=== PATIENT | female | born 1955 | race African-American/Black ===

== ENCOUNTER 2019-02-15 10:35 | Emergency (ER) | payer OTHER ==
[2019-02-15 11:23] LABS: ADD MAN DIFF? NO
[2019-02-15] MEDS: LORAZEPAM 1 MG TAB PO (11:26)
[2019-02-15 11:36] LABS: BASOPHILS % 0.3 % (0.0-2.0); EOSINOPHILS % 0.3 % (0.0-7.0); HEMATOCRIT 39.4 % (37.0-47.0); HEMOGLOBIN 13.3 g/dl (12.0-16.0); LYMPHOCYTES # 0.8 10^3/ul (0.8-2.9); LYMPHOCYTES % 11.5 % (15.0-51.0); MEAN CORPUSCULAR HEMOGLOBIN 31.7 pg (29.0-33.0); MEAN CORPUSCULAR HGB CONC 33.8 g/dl (32.0-37.0); MEAN CORPUSCULAR VOLUME 93.8 fl (82.0-101.0); MEAN PLATELET VOLUME 9.3 fl (7.4-10.4); MONOCYTE # 0.6 10^3/ul (0.3-0.9); MONOCYTES % 9.1 % (0.0-11.0); NEUTROPHIL # 5.4 10^3/ul (1.6-7.5); NEUTROPHILS % 78.5 % (39.0-77.0); PLATELET COUNT 206 10^3/UL (140-415)
[2019-02-15 11:36] LABS: WHITE BLOOD COUNT 6.8 10^3/ul (4.8-10.8)
[2019-02-15 11:46] LABS: LACTIC ACID 1.4 mmol/L (0.5-2.0)
[2019-02-15 11:50] LABS: ALANINE AMINOTRANSFERASE 23 IU/L (13-69); ALBUMIN 4.2 g/dl (3.3-4.9); ALBUMIN/GLOBULIN RATIO 1.68; ALKALINE PHOSPHATASE 130 IU/L (42-121); ANION GAP 10 (5-13); ASPARTATE AMINO TRANSFERASE 19 IU/L (15-46); BILIRUBIN,INDIRECT 0.5 mg/dl (0-1.1); BILIRUBIN,TOTAL 0.5 mg/dl (0.2-1.3); BLOOD UREA NITROGEN 10 mg/dl (7-20); CALCIUM 11.1 mg/dl (8.4-10.2); CARBON DIOXIDE 24 mmol/L (21-31); CHLORIDE 102 mmol/L (97-110); CREATININE 0.54 mg/dl (0.44-1.00); Estimated GFR > 60 mL/min (>60); GLUCOSE 106 mg/dl (70-220); LIPASE 335 U/L (23-300); POTASSIUM 3.8 mmol/L (3.5-5.1); SODIUM 136 mmol/L (135-144); TOTAL PROTEIN 6.7 g/dl (6.1-8.1)
[2019-02-15 11:59] LABS: TROPONIN-I < 0.012 ng/ml (0.000-0.120)
[2019-02-15 12:17] LABS: URINE BLOOD (Dip) POC Trace-lysed (NEGATIVE); URINE GLUCOSE (Dip) POC Negative (NEGATIVE); URINE KETONES (Dip) POC Negative (NEGATIVE); URINE LEUKOCYTE EST (Dip) POC Negative (NEGATIVE); URINE NITRITE (Dip) POC Negative (NEGATIVE); URINE TOTAL PROTEIN POC Negative (NEGATIVE)
[2019-02-15 12:17] LABS: URINE PH (Dip) POC 7.5 (5.0-8.5)
[2019-02-15 14:35] LABS: ADD UMIC YES; UR ASCORBIC ACID NEGATIVE (NEGATIVE); UR BILIRUBIN (Dip) NEGATIVE (NEGATIVE); UR BLOOD (Dip) 1+ mg/dL (NEGATIVE); UR CLARITY CLEAR (CLEAR); UR COLOR STRAW (YELLOW); UR GLUCOSE (Dip) NEGATIVE (NEGATIVE); UR KETONES (Dip) NEGATIVE (NEGATIVE); UR LEUKOCYTE ESTERASE (Dip) NEGATIVE Leu/ul (NEGATIVE); UR NITRITE (Dip) NEGATIVE (NEGATIVE); UR RBC 2 /HPF (0-5); UR SPECIFIC GRAVITY (Dip) 1.006 (1.003-1.030); UR TOTAL PROTEIN (Dip) NEGATIVE (NEGATIVE); UR UROBILINOGEN (Dip) NEGATIVE (NEGATIVE); UR WBC 1 /HPF (0-5)
== END 2019-02-15 12:45 | disposition home or self-care (01) ==
LOC: E/R 10:35
DX: B34.9 Viral infection, unspecified (principal); I10 Essential (primary) hypertension; J44.9 Chronic obstructive pulmonary disease, unspecified; R40.2142 Coma scale, eyes open, spontaneous, at arrival to emergency department; R40.2362 Coma scale, best motor response, obeys commands, at arrival to emergency department; R40.2252 Coma scale, best verbal response, oriented, at arrival to emergency department; Z86.73 Personal history of transient ischemic attack (TIA), and cerebral infarction without residual deficits; Z87.891 Personal history of nicotine dependence
CPT/HCPCS: 36415; 71045; 80053; 81001; 81003; 83605; 83690; 84484; 85025; 93005; 99285-25

== ENCOUNTER 2019-02-24 06:48 | Emergency (ER) | payer OTHER ==
[2019-02-24] MEDS: ONDANSETRON 4 MG INJ IV (07:30)
[2019-02-24] MEDS: BELLADONNA/PHENOBARBITAL TAB PO (07:30)
[2019-02-24] MEDS: LIDOCAINE/MYLANTA 40 ML BTL PO (07:30)
[2019-02-24] MEDS: SOD CHLORIDE 0.9% 1,000 ML IV (07:31)
[2019-02-24] MEDS: morphine 4 MG/ML VIAL IV (07:31)
[2019-02-24 07:44] LABS: ADD MAN DIFF? NO
[2019-02-24 07:49] LABS: BASOPHILS % 0.3 % (0.0-2.0); EOSINOPHILS % 0.1 % (0.0-7.0); HEMOGLOBIN 14.1 g/dl (12.0-16.0); LYMPHOCYTES # 1.8 10^3/ul (0.8-2.9); LYMPHOCYTES % 18.7 % (15.0-51.0); MEAN CORPUSCULAR HEMOGLOBIN 31.3 pg (29.0-33.0); MEAN CORPUSCULAR HGB CONC 33.6 g/dl (32.0-37.0); MEAN CORPUSCULAR VOLUME 93.3 fl (82.0-101.0); MEAN PLATELET VOLUME 8.9 fl (7.4-10.4); MONOCYTE # 0.5 10^3/ul (0.3-0.9); MONOCYTES % 5.1 % (0.0-11.0); NEUTROPHIL # 7.2 10^3/ul (1.6-7.5); NEUTROPHILS % 75.1 % (39.0-77.0); PLATELET COUNT 341 10^3/UL (140-415); RED CELL DISTRIBUTION WIDTH 13.2 % (11.5-14.5)
[2019-02-24 07:49] LABS: WHITE BLOOD COUNT 9.6 10^3/ul (4.8-10.8)
[2019-02-24 08:13] LABS: ALANINE AMINOTRANSFERASE 29 IU/L (13-69); ALBUMIN 4.8 g/dl (3.3-4.9); ALBUMIN/GLOBULIN RATIO 1.65; ALKALINE PHOSPHATASE 147 IU/L (42-121); ANION GAP 13 (5-13); ASPARTATE AMINO TRANSFERASE 24 IU/L (15-46); BILIRUBIN,INDIRECT 0.4 mg/dl (0-1.1); BILIRUBIN,TOTAL 0.4 mg/dl (0.2-1.3); BLOOD UREA NITROGEN 12 mg/dl (7-20); CALCIUM 11.7 mg/dl (8.4-10.2); CARBON DIOXIDE 21 mmol/L (21-31); CHLORIDE 103 mmol/L (97-110); CREATININE 0.49 mg/dl (0.44-1.00); Estimated GFR > 60 mL/min (>60); GLUCOSE 166 mg/dl (70-220); LIPASE 64 U/L (23-300); POTASSIUM 3.7 mmol/L (3.5-5.1); SODIUM 137 mmol/L (135-144); TOTAL PROTEIN 7.7 g/dl (6.1-8.1)
[2019-02-24 08:15] LABS: ADD UMIC NO; UR ASCORBIC ACID NEGATIVE (NEGATIVE); UR BILIRUBIN (Dip) NEGATIVE (NEGATIVE); UR BLOOD (Dip) NEGATIVE (NEGATIVE); UR CLARITY CLEAR (CLEAR); UR COLOR STRAW (YELLOW); UR GLUCOSE (Dip) NEGATIVE (NEGATIVE); UR KETONES (Dip) NEGATIVE (NEGATIVE); UR LEUKOCYTE ESTERASE (Dip) NEGATIVE Leu/ul (NEGATIVE); UR NITRITE (Dip) NEGATIVE (NEGATIVE); UR TOTAL PROTEIN (Dip) NEGATIVE (NEGATIVE); UR UROBILINOGEN (Dip) NEGATIVE (NEGATIVE)
[2019-02-24 08:25] LABS: TROPONIN-I < 0.012 ng/ml (0.000-0.120)
== END 2019-02-24 09:30 | disposition home or self-care (01) ==
LOC: E/R 06:48
DX: R10.84 Generalized abdominal pain (principal); R11.10 Vomiting, unspecified; I10 Essential (primary) hypertension; J44.9 Chronic obstructive pulmonary disease, unspecified; Z87.891 Personal history of nicotine dependence
CPT/HCPCS: 36415; 74176; 80053; 81003; 83690; 84484; 85025; 93005; 96361; 96374; 96375; 99285-25